=== PATIENT | male | born 1950 | race Caucasian/White ===

== ENCOUNTER 2022-01-23 08:58 | Outpatient (CLI) | payer MEDICARE, SELFPAY ==
[2022-01-23 11:37] LABS: Chloride* 106 mmol/L (96-114); Potassium* 4.3 mmol/L (3.6-5.1); Sodium* 140 mmol/L (135-149)
[2022-01-23 11:39] LABS: Cholesterol* 142 mg/dL (90-199); Estimated Glomerular Filt Rate 80 ml/min
[2022-01-23 11:40] LABS: Alanine Aminotransferase* 23 U/L (4-50); Blood Urea Nitrogen* 18 mg/dL (7-30); Calcium* 9.9 mg/dL (8.4-10.6); Carbon Dioxide* 27 mmol/L (20-32); Glucose* 90 mg/dL (60-115); Triglycerides* 72 mg/dL (40-149)
[2022-01-23 11:41] LABS: HDL Cholesterol* 51 mg/dL (>=40); LDL Cholesterol Calculated 77 mg/dL (<100)
[2022-01-23 13:07] LABS: PSA Screen* 1.83 ng/mL (0.10-4.00)
== END 2022-01-23 08:59 | disposition home or self-care (01) ==
PROVIDERS: PCP Family Medicine; Visit Provider Family Medicine
DX: E78.5 Hyperlipidemia, unspecified (principal); I10 Essential (primary) hypertension; E21.3 Hyperparathyroidism, unspecified; Z12.5 Encounter for screening for malignant neoplasm of prostate
CPT/HCPCS: 80048; 80061; 84153; 84460

== ENCOUNTER 2023-01-29 09:30 | Outpatient (CLI) | payer MEDICARE, SELFPAY | END 2023-01-29 09:31 | disposition home or self-care (01) | PROVIDERS: PCP Family Medicine; Visit Provider Family Medicine | DX: E78.2 Mixed hyperlipidemia (principal); I10 Essential (primary) hypertension; E21.3 Hyperparathyroidism, unspecified; Z12.5 Encounter for screening for malignant neoplasm of prostate | CPT/HCPCS: 80048; 80061; 84153; 84460 ==

== ENCOUNTER 2024-01-31 10:54 | Outpatient (CLI) | payer MEDICARE, SELFPAY | END 2024-01-31 10:55 | disposition home or self-care (01) | PROVIDERS: PCP Family Medicine; Visit Provider Family Medicine | DX: E78.2 Mixed hyperlipidemia (principal); I10 Essential (primary) hypertension; Z12.5 Encounter for screening for malignant neoplasm of prostate | CPT/HCPCS: 80048; 80061; 84460; G0103 ==

== ENCOUNTER 2024-04-17 11:57 | Outpatient (CLI) | payer MEDICARE, SELFPAY | END 2024-04-17 11:58 | disposition home or self-care (01) | LOC: FBOREF 11:59 | PROVIDERS: PCP Family Medicine; Visit Provider Family Medicine | DX: I10 Essential (primary) hypertension (principal) | CPT/HCPCS: 80048; 85025 ==

== ENCOUNTER 2024-04-27 06:46 | Day surgery (SDC) | payer MEDICARE, SELFPAY ==
[2024-04-27] VITALS (14 sets, daily range): BP systolic 119–156; BP diastolic 72–102; PULSE 46–89; RESP 12–16; TEMP 36.1–36.7; O2SAT 88–96; BMI 22.3
[2024-04-27] MEDS: LACTATED RINGERS 1000 ML 1,000 ML 100 ML IV (06:50)
[2024-04-27] MEDS: SODIUM CHLORIDE 0.9 % (FLUSH) 10 ML SYRINGE IVF (07:30)
[2024-04-27] MEDS: 0.9 % SODIUM CHLORIDE 500 ML 500 ML 100 ML IV (07:35)
--- NOTE | 2024-04-27 08:14 | W.PM.H&PU ---
History & Physical Update History & Physical Update H&P Reviewed and patient assessed: No changes noted
[2024-04-27] MEDS: CEFAZOLIN 2 GM INJ IVP (08:26)
[2024-04-27] MEDS: BUPIVACAINE 0.25% 30 ML INJECTION (08:42)
[2024-04-27] MEDS: 0.9 % SODIUM CHLORIDE 500 ML 500 ML 30 ML IV (09:30)
[2024-04-27] MEDS: ACETAMINOPHEN 325 MG TABLET 650 MG PO (10:08)
--- NOTE | 2024-04-27 10:13 | P.ANES_ITS ---
Anesthesia Charges Start Date/Time Anesthesia Start Date: 04/27/24 Anesthesia Start Time: 08:14 Stop Date/Time Anesthesia Stop Date: 04/27/24 Anesthesia Stop Time: 10:11 Coding CPT Codes CPT Codes: ANESTH SURGERY OF ABDOMEN - 77640 ([id number]) P2 - PATIENT W/MILD SYST DISEASE, QK - NITRO WORKER 2-4 CNCRNT ANES PROC, QX - NURSE OUTREACH CASE MANAGER SVC W/ MD MED DIRECTION
--- NOTE | 2024-04-27 10:13 | W.ANESCHARGE ---
Anesthesia Charges Start Date/Time Anesthesia Start Date: 04/27/24 Anesthesia Start Time: 08:14 Stop Date/Time Anesthesia Stop Date: 04/27/24 Anesthesia Stop Time: 10:11 Coding CPT Codes CPT Codes: ANESTH SURGERY OF ABDOMEN - 82914 ([id number]) P2 - PATIENT W/MILD SYST DISEASE, QK - ANALYTICAL TECH 2-4 CNCRNT ANES PROC, QX - RECREATION FACILITIES SUPERVISOR SVC W/ MD MED DIRECTION
[2024-04-27] MEDS: KETOROLAC 15 MG/ML inj IVP (10:15)
--- NOTE | 2024-04-27 10:20 | P.ANES_ITS ---
Anesthesia Charges Start Date/Time Anesthesia Start Date: 04/27/24 Anesthesia Start Time: 08:14 Stop Date/Time Anesthesia Stop Date: 04/27/24 Anesthesia Stop Time: 10:11 Summary Extremes of Age - Over 70 or under 1: MDA Coding CPT Codes CPT Codes: ANESTH SURGERY OF ABDOMEN - 15106 ([id number]) P2 - PATIENT W/MILD SYST DISEASE, QK - ASPHALT PLANT OPERATOR 2-4 CNCRNT ANES PROC, QX - CATHETER FINISHER AND INSPECTOR SVC W/ MD MED DIRECTION Additional Codes: Summary - Extremes of Age - Over 70 or under 1: MDA ([id number])
--- NOTE | 2024-04-27 10:20 | W.ANESCHARGE ---
Anesthesia Charges Start Date/Time Anesthesia Start Date: 04/27/24 Anesthesia Start Time: 08:14 Stop Date/Time Anesthesia Stop Date: 04/27/24 Anesthesia Stop Time: 10:11 Summary Extremes of Age - Over 70 or under 1: MDA Coding CPT Codes CPT Codes: ANESTH SURGERY OF ABDOMEN - 41713 ([id number]) P2 - PATIENT W/MILD SYST DISEASE, QK - FLAKE OR SHRED ROLL OPERATOR 2-4 CNCRNT ANES PROC, QX - CHILD CARE EDUCATION COORDINATOR SVC W/ MD MED DIRECTION Additional Codes: Summary - Extremes of Age - Over 70 or under 1: MDA ([id number])
--- NOTE | 2024-04-27 11:28 | PM.GSPRC ---
Operative Note Date of procedure: 04/27/24 Pre-op diagnosis: right inguinal hernia Post-op diagnosis: same Type of Procedure: laparoscopic right inguinal hernia repair Indications: Patient is a 73-year-old male who presented to clinic with a symptomatic left inguinal hernia. Please see consultation note regarding full discussion about different treatment options. Patient elected to proceed with surgical intervention. Risks and benefits of operative intervention were discussed at length with the patient. Risks included but was not limited to: Bleeding, infection, risk of damage to surrounding structures, possible need for additional procedures, possible need to convert to an open operation and postoperative complications such as pneumonia, pulmonary emboli or [place]. All questions and concerns were addressed with the patient agreeing to proceed. Procedure Description: After discussing the risks and benefits of the procedure, the patient signed informed consent.? The operative site was marked and the patient was brought to the operating room and placed on the operating table in supine position.? Care was taken to pad the patient's pressure points.?? The patient was then intubated by anesthesia.?? The operative site was then prepped and draped in the usual sterile fashion.? A time-out was then performed. A curvilinear incision was made below the umbilicus. Dissection was carried down to subcutaneous tissue until the anterior rectus fascia was encountered. This was incised off the midline. The rectus muscles were then retracted exposing the posterior fascia. A space maker port with a dissecting balloon was then introduced. The preperitoneal space was inflated under direct vision. The balloon was then removed and the preperitoneal space insufflated. A 10 mm 30 degree scope was then advanced and the area was surveyed for bleeding. Dissection began on the right side. Prabhu's ligament and the pubic bone was exposed medially. Following this dissection was carried out laterally. An indirect defect was noted. The sac was dissected free from the cord structures using a combination of sharp and blunt dissection. A large cord lipoma was reduced. Some bleeding from the fat was controlled with cautery and serveral 5mm clips. Once the sac was completely reduced, the cord structures were dissected circumfrentially and a piece of Parietex mesh for the appropriate side was placed into the abdomen. This was positioned around the cord structures. A Tacker was used to attach the mesh medially at Prabhu's ligament. Once this was completed the sac was placed on top of the mesh and the preperitoneal space desufflated under direct vision. The ports were removed. The fascia from the infraumbilical port was closed with 0 Vicryl. The skin incisions were closed with absorbable subcuticular suture. Sterile dressings were then applied. The scrotum was examined to ensure that both testicles were down. Instrument sponge and needle counts were correct at the end of the case. Sterile dressings were then applied. Findings: Right-sided, indirect hernia Anesthesia: GETA Surgeon: Bren Plaza MD Estimated blood loss (mL): 10 Condition: stable Disposition: PACU
== END 2024-04-27 12:27 | disposition home or self-care (01) ==
PROVIDERS: PCP Family Medicine; Visit Provider Surgery
PROC: (CPT 49650; principal; 2024-04-27 08:30)
DX: K40.90 Unilateral inguinal hernia, without obstruction or gangrene, not specified as recurrent (principal)
CPT/HCPCS: 49650; 00860; 99100; A9270; C1781; J0330; J0665; J0690; J1100; J1171; J1885; J2371; J2405; J2704; J3010; J3490; J7030; J7120

== ENCOUNTER 2024-04-29 12:56 | Emergency (ER) | payer MEDICARE, SELFPAY ==
--- OUTSIDE RECORDS SUMMARY | 2024-04-29 12:58 | XMS_ITS | Clinical Summary ---
Author Organization [facility] Address [address] [place] [id number] Care Team Providers Care Is Technician Name Role Phone Richie Diaz MD Primary Care Provider + Allergies No known active allergies Medications ibuprofen (ADVIL; MOTRIN) 200 mg cap Take 200 mg by mouth 4 times daily if needed. Active atorvastatin (LIPITOR) 20 mg tablet Take 1 tablet by mouth once daily. 0 9 Active omeprazole (PRILOSEC) 40 mg Delayed-Release capsule Take 1 capsule by mouth once daily before a meal. Active albuterol HFA (PRO-AIR; VENTOLIN; PROVENTIL) 90 mcg/actuation inhaler Inhale 2 Puffs by mouth every 4 hours if needed. Active nicotine (NICOTROL) 10 mg inhaler Inhale 10 mg by mouth every hour while awake as needed for Nicotine Craving. Active mzt-W8-ftg99-zinc -dla-cnps-bfp (Caltrate 600-D Plus Minerals) 600 mg calcium- 800 unit-50 mg tab Take by mouth. 0 1 Active vit C,R-Cf-efqgy-lute in-zeaxan (PreserVision AREDS-2) capsule Take 1 Capsule by mouth once daily. Twice Daily 0 2 Active tadalafiL (CIALIS;ADCIRCA) 20 mg tablet Take 20 mg by mouth once daily if needed. 2 Active apixaban (Eliquis) 5 mg tabletIndications :Paroxysmal atrial fibrillation (HC) Take 1 Tablet (5 mg) by mouth two times daily. 180 Tablet 3 4 Active hydrocortisone 1 % creamIndications: Persistent atrial fibrillation (HC) Apply topically to affected area(s) one time if needed for Itching. 5 Active Active Problems Problem Noted Date Diagnosed Date Chronic bullous emphysema 04/04/2021 History of cardiac radiofrequency ablation (RFA) 04/04/2021 History of cholecystectomy 04/04/2021 Osteopenia 04/04/2021 Diverticular disease of large intestine 09/24/19 Cardiomyopathy 05/15/2020 Diaphragmatic hernia 12/17/2015 History of endoscopy 12/17/2015 Erectile dysfunction 05/11/2013 Hiatal hernia 03/25/2009 Benign prostatic hyperplasia 10/18/2008 AMBLYOPIA, REFRACTIVE-OS 01/26/2003 Thrombus of left atrial appendage Therapeutic drug monitoring Resolved Problems Problem Noted Date Diagnosed Date Resolved Date Atrial fibrillation 04/07/2018 04/04/19 Overview (05/20/2018): -PAF with propafenone 150mg BID -03/04/2018 persistent atrial fibrillation (likely since 12/2017) *propafenone increased to 225mg three times daily -S/P atrial fibrillation ablation on 05/20/2018 Sinus node dysfunction 04/04 Encounters Date Type Department Care Team Description 03/08/2024 12:15 PM CONDUCTOR ORCHESTRA Anesthesia Event [facility] [address] [place] [address] Paty Zhang MD 03/08/2024 10:18 AM CONDUCTOR ORCHESTRA - 03/08/2024 1:30 PM CONDUCTOR ORCHESTRA Hospital Encounter [facility] [address] [place] [address] Vilma Olson PA Pickering, Jordan L, CRNA Taylor, Phillip Norman, MD Persistent atrial fibrillation (HC) (Primary Dx) Discharge Disposition: Home Self Care 03/08/2024 Travel 03/02/2024 10:00 AM CONDUCTOR ORCHESTRA Office Visit [facility] [address] [place] [address] Vilma Olson PA Follow Up (F/U for PAF. Pt. C/o Lightheadedness) 03/02/2024 Travel 02/29/2024 Travel from Last 3 Months Social History Tobacco Use Types Packs/Day Years Used Date Smoking Tobacco: Former Cigarettes 1.5 40 1 - 12/15/2008 Smokeless Tobacco: Never Tobacco Cessation:Counseling Given: No Alcohol Use Standard Drinks/Week Comments Yes 7 (1 standard drink = 0.6 oz pur e alcohol) 1-2 drinks daily Financial Resource Strain Answer Date R ecorded Difficulty of Paying Living Expenses Not on file 02/13/2021 Difficulty of Paying Living Expenses Not on file 02/13/2021 Interpersonal Safety Answer Date Record ed Are you being hit, kicked, p ushed or yelled at (see row info)? No 03/08/2024 Interpersonal Safety Abuse 12 - 18 Not on file 03/08/2024 Interpersonal Safety Ambulatory Vulnerability No t on file 03/08/2024 Sex and Gender Information Value Date Recorded Sex Assigned at Male 05/12/2020 5:43 PM CDT Legal Sex Male 5:24 AM CONDUCTOR ORCHESTRA Gender Identity Male 05/12/2020 5:43 PM CDT Sexual Orientation Straight 05/12/2020 5: 43 PM CDT Obstetrics History Last Filed Vital Signs Vital Sign Reading Time Taken Comments Blood Pressure 113/76 03/08/2024 1:12 PM CONDUCTOR ORCHESTRA Pulse 52 03/08/2024 1:12 PM CONDUCTOR ORCHESTRA Temperature 36.3 C (97.4 F) 03/08/2024 11:11 AM CONDUCTOR ORCHESTRA Respiratory Rate 16 03/08/2024 1:12 PM CONDUCTOR ORCHESTRA Oxygen Saturation 98% 03/08/2024 1:12 PM CONDUCTOR ORCHESTRA Inhaled Oxygen Concentration - - Weight 70.9 kg (156 lb 6.4 oz) 03/08/2024 11:11 AM CONDUCTOR ORCHESTRA Height 180.3 cm (5' 11) 03/08/2024 11:11 AM CONDUCTOR ORCHESTRA Body Mass Index 21.81 03/08/2024 11:11 AM CONDUCTOR ORCHESTRA Plan of Treatment Upcoming Encounters Date Type Department Care Team (Late st Contact Info) Description 05/29/2024 10:00 AM CDT Orders Only [facility] [address] [place] [address] 07/28/2024 8:00 AM CDT Office Visit [facility] [address] [place] [address] [place] [address] [place] [address] Health Maintenance Due Date Last Done Comments Tdap 1960 Depression screening for age 12+ 1961 Hepatitis C screening for ag e 18-79 06/13/1967 Pneumococcal series for age 50+ (1 of 2 - PCV) 1968 Tetanus booster 1969 Colonoscopy through age 75 1994 Lipids for age 45-75 1994 Zoster (shingles) series for age 50+ (1 of 2) 06/13/1999 RSV vaccine for adults or (1 - Risk 60-74 years 1-dose series) 2009 AAA screening age 65-74 2014 Medicare Wellness for age 65+ 2014 COVID-19 vaccine series (2023- season) 2023 06/17/2021, 05/10/2020, 04/19/2020 Influenza Vaccine (#1) 2023 BMI (ht and wt on same day) for age 18+ 03/02/2025 03/02/2024, 03/17/2023, 08/26/2022, Additional history exists Medical Devices Implanted Type Area Securities Vault Supervisor Device Identifier Shelf Expiration Date Model / Serial / Lot Iol Hubbard +22.5 Tecfiordaliza [id number] - [id number] Implanted:Qty : 1 on 04/24/2021 by Bladimir Mercado MD at [facility] Opthalmology Implants Right: Eye [employer] 09/26/2025 [id number] 22.5 / [id number] / NA Iol Hubbard +23.5 Tecfiord[employer]iza [id number] - [id number] Implanted:Qty : 1 on 04/10/2021 by Bladimir Mercado MD at [facility] Left: Eye [employer] 10/17/2025 [id number] 23.5 / [id number] / NA Description:+23.5D Procedures Procedure Name Priority Date/Time Associated Diagnosis Comments EKG 12 LEAD Post Op 03/08/2024 12:24 PM CONDUCTOR ORCHESTRA EP CARDIOVERSION Routine 03/08/2024 12:2 3 PM CONDUCTOR ORCHESTRA ISTAT CHEM 8 Timed 03/08/2024 11:52 AM CONDUCTOR ORCHESTRA EKG 12 LEAD UNIT PERFORMED Routine 03/08/2024 11:41 AM CONDUCTOR ORCHESTRA SCAN-CARDIAC STRIP 03/08/2024 12 :00 AM CONDUCTOR ORCHESTRA EKG 12 LEAD Today 03/02/2024 9:55 AM CONDUCTOR ORCHESTRA Persistent atrial fibrillation (HC) from Last 3 Months Results * EKG (03/08/2024 12:24 PM CONDUCTOR ORCHESTRA) Only the most recent of2 resultswithin the time period is included. Interpretation Normal sinus rhythm Left axis deviation Non-specific intra-ventric ular conduction block Abnormal ECG When compared with ECG of 08-Mar-2024 11:41, (Unconfirmed) Premature atrial complexes are no longer Present Vent. rate has decreased by 34 bpm BEYOND NOW Ventricular Rate 61 BPM BEYOND NOW Atrial Rate 61 BPM BEYOND NOW P-R Interval 170 ms BEYOND NOW QRS Duration 128 ms BEYOND NOW QT 448 ms BEYOND NOW QTc 450 ms BEYOND NOW P [place] 66 degrees BEYOND NOW R [place] -52 degrees BEYOND NOW T [place] 39 degrees BEYOND NOW 03/08/2024 12:2 4 PM CONDUCTOR ORCHESTRA 03/10/2024 2:13 AM CONDUCTOR ORCHESTRA Narrative BEYOND NOW - 03/10/2024 2:13 AM CONDUCTOR ORCHESTRA Test Indication: post dccv us Kofi Portillo NP EKG ORD Final Resul t [place] [place], [place] * EP CARDIOVERSION (03/08/2024 12:23 PM CONDUCTOR ORCHESTRA) Anatomical Region Laterality Modality X-Ray Angiograph y Narrative 03/08/2024 12:23 PM Kofi Peña NP 03/08/2024 12:24 PM [facility] Cardiac Electrophysiology Procedure Note DOS: 03/08/2024 Brief History: Roberth Prince is a pleasant 73 y.o. year old with history of persistent atrial fibrillation who now presents to [facility] NPO since midnight for direct current cardioversion. Eliquis 5 mg BID with no missed doses for at least 3 consecutive weeks. Procedure Description: Time out was called. Brief general anesthesia by anesthesia service. Cardioversion patches were placed in an anterior/posterior position. One 200 joules synchronized shock delivered with successful conversion to sinus bradycardia with intermittent junctional rhythm. Complications: No acute complications. Plan: Roberth Prince is now recovering from sedation and would anticipate discharge home later today. Dr. Vitale was readily available to provide assistance and direction throughout the time services were performed Kofi Portillo NP [facility] Cardiac Electrophysiology Vilma KIM CV IMAGING Janell l Result * ISTAT CHEM 8 (03/08/2024 11:52 AM CONDUCTOR ORCHESTRA) [facility] SODIUM, POCT 03/08/2024 4:39 PM CONDUCTOR ORCHESTRA [facility] Comment:Unable to determine. POTASSIUM, POCT 4.1 3.5 - 5.0 mmol/L 03/08/2024 4:39 PM CONDUCTOR ORCHESTRA [facility] CHLORIDE, POCT 03/08/2024 4:39 PM CONDUCTOR ORCHESTRA [facility] Comment:Unable to determine. CO2,TOTAL, POCT 03/08/2024 4:39 PM CONDUCTOR ORCHESTRA [facility] Comment:Unable to determine. ANION GAP, POCT 03/08/2024 4:39 PM CONDUCTOR ORCHESTRA [facility] Comment:Unable to calculate. GLUCOSE, POCT 03/08/2024 4:39 PM CONDUCTOR ORCHESTRA [facility] Comment:Unable to determine. IONIZED CALCIUM, POCT 03/08/2024 4:39 PM CONDUCTOR ORCHESTRA [facility] Comment:Unable to determine. BUN, POCT 03/08/2024 4:39 PM CONDUCTOR ORCHESTRA [facility] Comment:Unable to determine. CREATININE, POCT 03/08/2024 4:39 PM CONDUCTOR ORCHESTRA [facility] Comment:Unable to determine. BUN/CREAT RATIO, POCT 03/08/2024 4:39 PM CONDUCTOR ORCHESTRA [facility] Comment:Unable to calculate. eGFR 03/08/2024 4:39 PM CONDUCTOR ORCHESTRA [facility] Comment:Unable to calculate. HEMATOCRIT, POCT 03/08/2024 4:39 PM CONDUCTOR ORCHESTRA [facility] Comment:Unable to determine. HEMOGLOBIN, POCT 03/08/2024 4:39 PM CONDUCTOR ORCHESTRA [facility] Comment:Unable to determine. Blood BLOOD SPECIMEN / Unknown 03/08/2024 11:52 AM CONDUCTOR ORCHESTRA 03/08/2024 4:39 PM CONDUCTOR ORCHESTRA Vilma KIM CHEMISTRY Janell l Result Performing Organization Address [facility] Co de Phone Number [facility] [address] [place] [address], [place] * EKG 12 LEAD UNIT PERFORMED (03/08/2024 11:41 AM CONDUCTOR ORCHESTRA) Interpretation Sinus tachycardia with Blocked Premature atrial complexes Left axis deviation Non-specific intra-ventricu lar conduction block Abnormal ECG When compared with ECG of 02-Mar-2024 09:55, Premature atrial complexes are now Present Questionable change in QRS duration BEYOND NOW Ventricular Rate 95 BPM [facility]YOND NOW Atrial Rate 107 BPM BEYOND NOW P-R Interval 196 ms BEYOND NOW QRS Duration 128 ms BEYOND NOW QT 356 ms BEYOND NOW QTc 447 ms BEYOND NOW P [place] 90 degrees BEYOND NOW R [place] -56 degrees BEYOND NOW T [place] 47 degrees BEYOND NOW 03/08/2024 11:4 1 AM CONDUCTOR ORCHESTRA 03/10/2024 2:13 AM CONDUCTOR ORCHESTRA Narrative [facility]YOND NOW - 03/10/2024 2:13 AM CONDUCTOR ORCHESTRA Test Indication: preop Renard Redd CRIMINAL ANALYST EKG ORD Final Re sult Performing Organization Address [facility] Co de Phone Number [place] [place], [place] * SCAN-CARDIAC STRIP (03/08/2024 12:00 AM CONDUCTOR ORCHESTRA) Narrative 03/08/2024 12:00 AM CONDUCTOR ORCHESTRA Ordered by an unspecified provider. us Other Clinical Staff OTHER Final Resul t from Last 3 Months Insurance MEDICARE PART A HB ONLY [facility] MR Advance Directives Documents on File Type Date Recorded Patient Paving Supervisor Expl anation Healthcare Directive 05/26/2018 4:40 PM * Full Code (Latest Code Status on File) Date Activated Date Inactivated Comments 03/08/2024 12:23 PM 03/08/2024 3:35 PM Question Answer Comments Code Status Discussion: Other * Full Code Date Activated Date Inactivated Comments 02/02/2022 9:08 AM 02/02/2022 12:50 PM Question Answer Comments Code Status Discussion: Reviewed Preferences * Full Code Date Activated Date Inactivated Comments 02/02/2020 10:39 AM 02/03/2020 12:37 PM Question Answer Comments Code Status Discussion: Not Discussed * Full Code Date Activated Date Inactivated Comments 05/20/2018 7:37 PM 05/21/2018 12:05 PM Question Answer Comments Code Status Discussion: Not Discussed * Full Code Date Activated Date Inactivated Comments 05/09/2018 1:45 PM 05/10/2018 2:13 AM Care Teams Is Technician Relationship Specialty Start Date End Date Richie Diaz MD [address] [place] [address] PCP - General Family Practice 12/17/21
[2024-04-29 13:01] VITALS: BP 157/79; PULSE 50; RESP 18; TEMP 36.3; O2SAT 98; BMI 21.6
--- NOTE | 2024-04-29 13:02 | ED_ITS ---
HPI - General Adult General Chief complaint: GI Bleed Stated complaint: post hernia sx complications Time Seen by Provider: 04/29/24 13:01 History of Present Illness HPI narrative: had right inguinal hernia repair on 04/[address] amaral. noticed blood with bowel movements today starting at 0400. this occurred 3 times. has some abd cramping but feels well otherwise. called triage line and was instructed to come here. was on Eliquis has not taken since 04/25. has hx of intermittent a fib. 73-year-old man presenting to the emergency part with concern of rectal bleeding. 6 days since last Eliquis dose. Beginning this morning had 3 bowel movements where had some clots of blood produced. Is not feeling lightheaded. No increase in abdominal pain. Is on a 5 year cycle currently and due for colonoscopy. Reports history of benign polyps. Does not know if he has ever had any diverticulitis or diverticular disease diagnosed. Has a little abdominal cramping. No fever. He does not think he is in atrial fibrillation at this time. Later inquiry reveals that he had had 1 rather hard bowel movement postop but prior to this bleeding. Related Data Home Medications ?Medication ?Instructions ?Recorded ?Confirmed calcium 300 mg-D3 20 mcg-magnesium 1 tab PO QDAY 09/30/21 04/27/24 25 mg-coppr 0.5 gn-bynb-jyba tablet (Caltrate-D3 Plus Minerals) ibuprofen 200 mg tablet 200 mg PO Q6H PRN 01/29/23 04/27/24 vit C 250 mg-E 90 mg-zinc 40 1 tab PO QAM AND QPM 04/17/24 04/27/24 mg-copper 1 vx-ytktfp-guzxts chew tablet (PreserVision AREDS-2) Previous Rx's ?Medication ?Instructions ?Recorded apixaban 5 mg tablet (Eliquis) 5 mg PO BID #180 tabs 01/29/23 tadalafil 20 mg tablet 20 mg PO QDAY PRN sexual activity 02/23/23 #20 tabs omeprazole 40 mg capsule,delayed 40 mg PO QDAY #90 caps 02/23/24 release atorvastatin 20 mg tablet 20 mg PO QDAY #90 tabs 03/06/24 albuterol sulfate 90 mcg/actuation 2 puff inhalation Q4-5H PRN 04/17/24 aerosol inhaler shortness of breath or wheezing #8.5 grams hydrocodone 5 mg-acetaminophen 325 1 tab PO Q6H PRN pain #20 tabs 04/27/24 mg tablet sennosides 8.6 mg capsule (senna) 8.6 mg PO DAILY PRN constipation 04/27/24 #90 caps Allergies Allergy/AdvReac Type Severity Reaction Status Date / Time No Known Drug Allergies Allergy Verified 04/29/24 13:01 Review of Systems Status of ROS: Reports: 6 or more systems reviewed and unremarkable except as noted in History and below [facility] Medical History Mixed hyperlipidemia ?E78.2 - Mixed hyperlipidemia (ICD-10) Primary hypertension ?I10 - Essential (primary) hypertension (ICD-10) Tobacco use disorder (10/18/08) ?F17.200 - Nicotine dependence, unspecified, uncomplicated (ICD-10) Stricture of esophagus (03/25/09) ?K22.2 - Esophageal obstruction (ICD-10) Paroxysmal atrial fibrillation ?I48.0 - Paroxysmal atrial fibrillation (ICD-10) Osteopenia ?M85.80 - Other specified disorders of bone density and structure, unspecified site (ICD-10) Hyperparathyroidism ?E21.3 - Hyperparathyroidism, unspecified (ICD-10) Gastroesophageal reflux disease (10/18/08) ?K21.9 - Gastro-esophageal reflux disease without esophagitis (ICD-10) Erectile dysfunction (05/11/13) ?N52.9 - Male erectile dysfunction, unspecified (ICD-10) Colitis due to Clostridium difficile ?A04.72 - Enterocolitis due to Clostridium difficile, not specified as recurrent (ICD-10) Chronic bullous emphysema ?J43.9 - Emphysema, unspecified (ICD-10) Benign prostatic hyperplasia (10/18/08) ?N40.0 - Benign prostatic hyperplasia without lower urinary tract symptoms (ICD-10) Surgical History History of endoscopy (12/17/15) ?Z98.890 - Other specified postprocedural states (ICD-10) History of cholecystectomy ?Z90.49 - Acquired absence of other specified parts of digestive tract (ICD- 10) History of cardiac radiofrequency ablation (RFA) ?Z98.890 - Other specified postprocedural states (ICD-10) Family History Family/Other Heart failure Social History Narrative: alcohol ingestion, 1-4 drinks/week does not use illicit drugs former smoker has 2 children What is your current living situation?: I presently have a place to live In the past 12 months, utilities in danger of being shut off: no In past 12 months, lack of transportation kept you from medical appts, meetings, work, or getting things needed for daily living: no In the past 12 mos, have been you worried that your food would run out before you had money to buy more?: never true In the past 12 mos, the food you bought just didn't last and you didn't have money to buy more?: never true Smoking Status: Former smoker Do you use any of these nicotine containing products: None Second hand tobacco smoke exposure: No How often do you have a drink containing alcohol: 2-3 times a week Alcohol type: beer How many standard drinks containing alcohol do you have on a typical day: 3 or 4 How often do you have six or more drinks on one occasion: Less than monthly AUDIT-C Alcohol total score: 5 Non-prescribed substance use: denies use Caffeine: Yes (Daily) How often does anyone, including family, friends and others, physically hurt you : never How often does anyone, including family, friends and others, insult or talk down to you: never How often does anyone, including family, friends and others, threaten you with harm: never How often does anyone, including family, friends and others, scream or curse at you: never service: No Exam Narrative: Exam Narrative: Pleasant. NAD. Skin is warm and dry. Bandages in place from operative incisions in the midline infraumbilical and suprapubic area. Inflammatory changes around them. Right low abdomen with mild bruising. This is the site of the inguinal herniorrhaphy. A little puffy here but no inflammatory changes here either. Little tender here. Abdomen otherwise is soft and nontender. Breathing easily. Heart in regular rate and rhythm today. Return later for anoscopy exam. There is some 12 o'clock hemorrhoidal tissue noninflamed. Anoscope exam is without any evidence of active bleeding. Const: Vital Signs, click to edit/add: Vital Signs - 24 hr 04/29/24 13:01 Temperature 97.3 F L Pulse Rate [Pulse Oximeter] 50 L Respiratory Rate 18 Blood Pressure [Le ft Upper Arm] 157/79 H Pulse Oximetry 98 Oxygen Delivery Me thod Room Air Documenting provider has reviewed patient's vital signs: yes Course Vital Signs Vital signs: Initial Vital Signs Temperature 97.3 F L 04/29/24 13:01 Temperature Source Temporal Artery Scan 04/29/24 13:01 Pulse Rate 50 L 04/29/24 13:01 Pulse Rhythm Regular 04/29/24 13:01 Respiratory Rate 18 04/29/24 13:01 Blood Pressure 157/79 H 04/29/24 13:01 Blood Pressure Mean 105 04/29/24 13:01 Blood Pressure Position Sitting 04/29/24 13:01 Pulse Oximetry 98 04/29/24 13:01 Oxygen Delivery Method Room Air 04/29/24 13:01 Vital Signs Temperature 97.3 F L 04/29/24 13:01 Pulse Rate 50 L 04/29/24 13:01 Respiratory Rate 18 04/29/24 13:01 Blood Pressure 157/79 H 04/29/24 13:01 Pulse Oximetry 98 04/29/24 13:01 Oxygen Delivery Method Room Air 04/29/24 13:01 Temperature 97.3 F L 04/29/24 13:01 Pulse Rate 50 L 04/29/24 13:01 Respiratory Rate 18 04/29/24 13:01 Blood Pressure 157/79 H 04/29/24 13:01 Pulse Oximetry 98 04/29/24 13:01 Oxygen Delivery Method Room Air 04/29/24 13:01 Medical Decision Making MDM Narrative Medical decision making narrative: Pending cbc. Does not have pain consistent with diverticulitis otherwise. Regardless discomfort is over on the right where had hernia repair. Certainly possible to have concurrent diverticulitis I suppose in the area. Otherwise might be some higher hemorrhoidal bleeding. Does not have any upper GI symptoms. Does have a history of GERD. Is anticoagulated but has not taken his medication in 6 days. Was to restart today. Does not appear to be in atrial fibrillation currently. Did review surgical notes. Does not appear to be any complications that might be contributing to this bleeding. I would think this rectal bleeding is unrelated to recent surgery. Suspect rectal passage related. I did discuss this case with on-call surgery. Also suspect that likely hemorrhoidal bleeding secondary to hard stool. Unlikely related to surgery. Did have 1 watery bloody stool just before departure. No clots noted. Generally well. Labs are reassuring. Stable vitals. Noted to be chronically somewhat bradycardic/slower rate. See patient discharge plan for further discussion Stay well-hydrated. Try to get stools to be soft. Can continue with your docusate, maybe go to twice a day. Consider addition of MiraLax equivalent to at least 8 oz of liquid 1-2 times daily. Hold Eliquis until not seeing clots of blood or if you suspect you are back into atrial fibrillation then within 24 hours should be back on your Eliquis. You do not seem to be in atrial fibrillation at this point. Check to see when your next colonoscopy is due. Be seen for marked increase in abdominal pain, sensation lightheadedness or shortness of breath or repeated golf ball size or larger blood clots or bleeding continuing for a week Medical Records Medical records reviewed: Yes I reviewed the patient's medical records Lab Data Lab results reviewed: Yes I reviewed the patient's lab results Labs: Lab Results 04/29/24 Range/Units 14:40 WBC 8.13 (4.50-11.00) K/uL RBC 4.34 (4.30-5.90) m/uL Hgb 13.4 L (13.5-17.5) gm/dL Hct 40.7 (37.0-53.0) % MCV 94 (80-100) fL MCH 31 (26-34) pg MCHC 33 (32-36) gm/dL RDW Coeff of Alec 13.1 (11.5-15.5) % Plt Count 154 (140-440) K/uL Neut % (Auto) 75.4 H (42.0-72.0) % Lymph % (Auto) 12.8 L (20-44) % [place] % (Auto) 9.1 (0.0-11.0) % Eos % (Auto) 1.6 (0.0-7.0) % Baso % (Auto) 0.1 (0.0-3.0) % Neut # (Auto) 6.10 (1.7-7.0) K/uL Lymph # (Auto) 1.00 (0.90-2.90) K/uL [place] # (Auto) 0.70 (0.00-0.90) K/UL Eos # (Auto) 0.13 (0.00-0.50) K/uL Baso # (Auto) 0.01 (0.00-0.30) K/uL Abs Immat Gran (auto) 0.08 (0.00-0.30) K/uL Imm/Tot Granulo (auto) 1.0 % Discharge Plan Discharge Clinical Impression: Bright red rectal bleeding Patient Disposition: Home w/ Parent or Adult Condition: Stable Additional Instructions: Stay well-hydrated. Try to get stools to be soft. Can continue with your docusate, maybe go to twice a day. Consider addition of MiraLax equivalent to at least 8 oz of liquid 1-2 times daily. Hold Eliquis until not seeing clots of blood or if you suspect you are back into atrial fibrillation then within 24 hours should be back on your Eliquis. You do not seem to be in atrial fibrillation at this point. Check to see when your next colonoscopy is due. Be seen for marked increase in abdominal pain, sensation lightheadedness or shortness of breath or repeated golf ball size or larger blood clots or bleeding continuing for a week Prescriptions: No Action Caltrate-D3 Plus Minerals 300 mg-800 unit -25 mg-0.5 mg tablet 1 tab PO QDAY ibuprofen 200 mg tablet 200 mg PO Q6H PRN Eliquis 5 mg tablet 5 mg PO BID Qty: 180 3RF PreserVision AREDS-2 250-90-40-1 mg tablet,chewable 1 tab PO QAM AND QPM albuterol sulfate 90 mcg/actuation HFA aerosol inhaler 2 puff inhalation Q4-5H PRN (Reason: shortness of breath or wheezing) Qty: 8.5 5RF hydrocodone-acetaminophen 5-325 mg tablet 1 tab PO Q6H PRN (Reason: pain) Qty: 20 0RF senna 8.6 mg capsule 8.6 mg PO DAILY PRN (Reason: constipation) Qty: 90 0RF tadalafil 20 mg tablet 20 mg PO QDAY PRN (Reason: sexual activity) Qty: 20 5RF omeprazole 40 mg capsule,delayed release(DR/EC) 40 mg PO QDAY Qty: 90 3RF atorvastatin 20 mg tablet 20 mg PO QDAY Qty: 90 2RF Follow Up/Referrals: Richie Diaz MD [Primary Care Provider] - Stand Alone Forms: Sphere 3d Info Instructions
--- OUTSIDE RECORDS SUMMARY | 2024-04-29 14:25 | XMS_ITS | Clinical Summary ---
Author Organization [facility] Address [address] [place] [id number] Care Team Providers Care Bilingual Executive Assistant Name Role Phone Richie Diaz MD Primary [...] awake as needed for Nicotine Craving. Active qjv-Q2-bnc63-zinc -xiq-nfex-zry (Caltrate 600-D Plus Minerals) 600 mg calcium- 800 unit-50 mg tab Take by mouth. 0 1 Active vit C,T-Ik-dmicg-lute in-zeaxan (PreserVision AREDS-2) capsule Take 1 Capsule [...] Department Care Team Description 03/08/2024 12:15 PM POCKET MARKER Anesthesia Event [facility] [address] [place] [address] Paty Zhang MD 03/08/2024 10:18 AM POCKET MARKER - 03/08/2024 1:30 PM POCKET MARKER Hospital Encounter [facility] [address] [place] [address] Vilma Olson PA Pickering, Jordan L, CRNA Taylor, Phillip Norman, MD Persistent atrial fibrillation (HC) (Primary Dx) Discharge Disposition: Home Self Care 03/08/2024 Travel 03/02/2024 10:00 AM POCKET MARKER Office Visit [facility] [address] [place] [address] Vilma Olson PA Follow Up (F/U for [...] PM CDT Legal Sex Male 5:24 AM POCKET MARKER Gender Identity Male 05/12/2020 5:43 PM CDT Sexual Orientation Straight 05/12/2020 5: 43 PM CDT Obstetrics History Last Filed Vital Signs Vital Sign Reading Time Taken Comments Blood Pressure 113/76 03/08/2024 1:12 PM POCKET MARKER Pulse 52 03/08/2024 1:12 PM POCKET MARKER Temperature 36.3 C (97.4 F) 03/08/2024 11:11 AM POCKET MARKER Respiratory Rate 16 03/08/2024 1:12 PM POCKET MARKER Oxygen Saturation 98% 03/08/2024 1:12 PM POCKET MARKER Inhaled Oxygen Concentration - - Weight 70.9 kg (156 lb 6.4 oz) 03/08/2024 11:11 AM POCKET MARKER Height 180.3 cm (5' 11) 03/08/2024 11:11 AM POCKET MARKER Body Mass Index 21.81 03/08/2024 11:11 AM POCKET MARKER Plan of Treatment Upcoming Encounters Date Type Department Care Team (Late st Contact Info) Description 05/29/2024 10:00 AM CDT Orders Only [facility] [address] [place] [id number] 07/28/2024 8:00 AM CDT Office Visit [facility] [id number] [place] [address] [place] [address] [place] [address] Health Maintenance Due Date Last Done Comments [...] history exists Medical Devices Implanted Type Area Company Laborer Device Identifier Shelf Expiration Date Model / Serial / Lot Iol [place] +22.5 [employer] [id number] - [id number] Implanted:Qty : 1 on 04/24/2021 by Bladimir Mercado MD at [facility] Opthalmology Implants Right: Eye [employer] 09/26/2025 [id number] 22.5 / [id number] / NA Iol [place] +23.5 T[employer]fi[employer]iza [id number] - [id number] Implanted:Qty : 1 on 04/10/2021 by Bladimir Mercado MD at [facility] Left: Eye [employer] 10/17/2025 [id number] 23.5 / [id number] / NA Description:+23.5D Procedures Procedure Name Priority Date/Time Associated Diagnosis Comments EKG 12 LEAD Post Op 03/08/2024 12:24 PM POCKET MARKER EP CARDIOVERSION Routine 03/08/2024 12:2 3 PM POCKET MARKER ISTAT CHEM 8 Timed 03/08/2024 11:52 AM POCKET MARKER EKG 12 LEAD UNIT PERFORMED Routine 03/08/2024 11:41 AM POCKET MARKER SCAN-CARDIAC STRIP 03/08/2024 12 :00 AM POCKET MARKER EKG 12 LEAD Today 03/02/2024 9:55 AM POCKET MARKER Persistent atrial fibrillation (HC) from Last 3 Months Results * EKG (03/08/2024 12:24 PM POCKET MARKER) Only the most recent of2 resultswithin the [...] NOW QTc 450 ms BEYOND NOW P Beth[place] 66 degrees BEYOND NOW R Bethany -52 degrees BEYOND NOW T Bethany 39 degrees BEYOND NOW 03/08/2024 12:2 4 PM POCKET MARKER 03/10/2024 2:13 AM POCKET MARKER Narrative BEYOND NOW - 03/10/2024 2:13 AM POCKET MARKER Test Indication: post dccv us Kofi Portillo NP EKG ORD Final Resul t BEYOND NOW [place], [place] * EP CARDIOVERSION (03/08/2024 12:23 PM POCKET MARKER) Anatomical Region Laterality Modality X-Ray Angiograph y Narrative 03/08/2024 12:23 PM Kofi Peña NP 03/08/2024 12:24 PM [facility] Cardiac Electrophysiology Procedure Note DOS: 03/08/2024 Brief History: Roberth Prince is a pleasant 73 y.o. year old with history of persistent atrial fibrillation who now presents to [facility] NPO since midnight for direct current [...] time services were performed Kofi Portillo NP [facility] Cardiac Electrophysiology Vilma KIM CV IMAGING Janell l Result * ISTAT CHEM 8 (03/08/2024 11:52 AM POCKET MARKER) [facility] SODIUM, POCT 03/08/2024 4:39 PM POCKET MARKER [facility] Comment:Unable to determine. POTASSIUM, POCT 4.1 3.5 - 5.0 mmol/L 03/08/2024 4:39 PM POCKET MARKER [facility] CHLORIDE, POCT 03/08/2024 4:39 PM POCKET MARKER [facility] Comment:Unable to determine. CO2,TOTAL, POCT 03/08/2024 4:39 PM POCKET MARKER [facility] Comment:Unable to determine. ANION GAP, POCT 03/08/2024 4:39 PM POCKET MARKER [facility] Comment:Unable to calculate. GLUCOSE, POCT 03/08/2024 4:39 PM POCKET MARKER [facility] Comment:Unable to determine. IONIZED CALCIUM, POCT 03/08/2024 4:39 PM POCKET MARKER [facility] Comment:Unable to determine. BUN, POCT 03/08/2024 4:39 PM POCKET MARKER [facility] Comment:Unable to determine. CREATININE, POCT 03/08/2024 4:39 PM POCKET MARKER [facility] Comment:Unable to determine. BUN/CREAT RATIO, POCT 03/08/2024 4:39 PM POCKET MARKER [facility] Comment:Unable to calculate. eGFR 03/08/2024 4:39 PM POCKET MARKER [facility] Comment:Unable to calculate. HEMATOCRIT, POCT 03/08/2024 4:39 PM POCKET MARKER [facility] Comment:Unable to determine. HEMOGLOBIN, POCT 03/08/2024 4:39 PM POCKET MARKER [facility] Comment:Unable to determine. Blood BLOOD SPECIMEN / Unknown 03/08/2024 11:52 AM POCKET MARKER 03/08/2024 4:39 PM POCKET MARKER Vilma KIM CHEMISTRY Janell l Result Performing Organization Address [facility] Co de Phone Number [facility] [address] [place] [address], [place] * EKG 12 LEAD UNIT PERFORMED (03/08/2024 11:41 AM POCKET MARKER) Interpretation Sinus tachycardia with Blocked Premature atrial [...] NOW QTc 447 ms BEYOND NOW P Beth[place] 90 degrees BEYOND NOW R Bethany -56 degrees BEYOND NOW T Bethany 47 degrees BEYOND NOW 03/08/2024 11:4 1 AM POCKET MARKER 03/10/2024 2:13 AM POCKET MARKER Narrative BEYOND NOW - 03/10/2024 2:13 AM POCKET MARKER Test Indication: preop Renard Redd TRAUMA MANAGER EKG ORD Final Re sult Performing Organization Address [facility] Co de Phone Number [place] * SCAN-CARDIAC STRIP (03/08/2024 12:00 AM POCKET MARKER) Narrative 03/08/2024 12:00 AM POCKET MARKER Ordered by an unspecified provider. us Other Clinical Staff OTHER Final Resul t from Last 3 Months Insurance MEDICARE PART A HB ONLY [facility] MR Advance Directives Documents on File Type Date Recorded Patient Architectural Project Manager Expl anation Healthcare Directive 05/26/2018 4:40 PM [...] 1:45 PM 05/10/2018 2:13 AM Care Teams Bilingual Executive Assistant Relationship Specialty Start Date End Date Richie Diaz MD [address] [place] [address] PCP - General Family Practice 12/17/21
[2024-04-29 14:45] LABS: Basophils Absolute Auto 0.01 K/uL (0.00-0.30); Basophils Percent Auto 0.1 % (0.0-3.0); Eosinophils Absolute Auto 0.13 K/uL (0.00-0.50); Eosinophils Percent Auto 1.6 % (0.0-7.0); Hematocrit 40.7 % (37.0-53.0); Hemoglobin* 13.4 gm/dL (13.5-17.5); Immature Granulocytes Abs Auto 0.08 K/uL (0.00-0.30); Lymphocytes Percent Auto 12.8 % (20-44); Mean Corpuscular HGB Conc 33 gm/dL (32-36); Mean Corpuscular Hemoglobin 31 pg (26-34); Mean Corpuscular Volume 94 fL (80-100); Monocytes Percent Auto 9.1 % (0.0-11.0); Neutrophils Percent Auto 75.4 % (42.0-72.0); Platelet Count* 154 K/uL (140-440); RDW Coefficient of Variation % 13.1 % (11.5-15.5); Red Blood Count 4.34 m/uL (4.30-5.90); White Blood Count* 8.13 K/uL (4.50-11.00)
[2024-04-29 14:50] LABS: Slide Review Reflex No
== END 2024-04-29 15:25 | disposition home or self-care (01) ==
PROVIDERS: Emergency Provider Family Medicine; PCP Family Medicine
DX: K62.5 Hemorrhage of anus and rectum (principal)
CPT/HCPCS: 36415; 85025; 93005; 99283; 99284

== ENCOUNTER 2024-06-20 13:46 | Outpatient (CLI) | payer MEDICARE, SELFPAY | END 2024-06-20 13:47 | disposition home or self-care (01) | PROVIDERS: PCP Family Medicine; Visit Provider Family Medicine | DX: E78.2 Mixed hyperlipidemia (principal) | CPT/HCPCS: 84450; 84460 ==

== ENCOUNTER 2025-01-31 11:21 | Outpatient (CLI) | payer MEDICARE, SELFPAY | END 2025-01-31 11:22 | disposition home or self-care (01) | PROVIDERS: PCP Family Medicine; Visit Provider Family Medicine | DX: E78.2 Mixed hyperlipidemia (principal); I10 Essential (primary) hypertension; Z13.9 Encounter for screening, unspecified; G62.9 Polyneuropathy, unspecified | CPT/HCPCS: 80048; 80061; 82607; 84443; 84460; G0103 ==